=== PATIENT | male | born 1950 | race Caucasian/White ===

== ENCOUNTER 2017-05-27 21:33 | Emergency (ER) | payer MEDICAID ==
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
[2017-05-28] MEDS ORDERED: NORCO 5/325 PO ONE (02:27)
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
[2017-05-28] MEDS ORDERED: TETRACAINE 0.5% ONE (03:03)
[2017-05-28] MEDS ORDERED: FUL-GLO OP ONE ×2 (03:03→06:22)
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
[2017-05-28 03:30] VITALS: BP 105/64
[2017-05-28] MEDS ORDERED: BOOSTRIX IM ONE (03:31)
[2017-05-28] MEDS ORDERED: TETRACAINE 0.5% OS ONE (05:12)
== END 2017-05-28 03:55 | disposition home or self-care (01) ==
LOC: ED 21:33
DX: S06.0X1A Concussion with loss of consciousness of 30 minutes or less, initial encounter (principal); S02.32XA Fracture of orbital floor, left side, initial encounter for closed fracture; S20.221A Contusion of right back wall of thorax, initial encounter; R03.0 Elevated blood-pressure reading, without diagnosis of hypertension; Y04.2XXA Assault by strike against or bumped into by another person, initial encounter; Y93.89 Activity, other specified; Y99.8 Other external cause status; Y92.89 Other specified places as the place of occurrence of the external cause
CPT/HCPCS: 70450; 70486; 72125; 90471; 90715

== ENCOUNTER 2018-10-06 03:46 | Emergency (ER) | payer MEDICAID ==
[2018-10-06 05:06] LABS: Basophils % (Auto) 0.2 % (0.0-1.8); Eosinophils # (Auto) 0.1 K/mm3 (0.0-0.4); Eosinophils % (Auto) 0.7 % (0.0-4.3); Hematocrit 37.5 % (35.5-45.6); Hemoglobin 12.4 gm/dl (11.8-15.2); Lymphocytes # (Auto) 0.4 K/mm3 (1.2-5.4); Lymphocytes % (Auto) 3.9 % (13.4-35.0); Mean Corpuscular HGB Conc 33 % (32-34); Mean Corpuscular Volume 82 fl (84-94); Monocytes # (Auto) 0.9 K/mm3 (0.0-0.8); Monocytes % (Auto) 9.8 % (0.0-7.3); Platelet Count 345 K/mm3 (140-440); Red Blood Count 4.57 M/mm3 (3.65-5.03); Red Cell Distribution Width 15.5 % (13.2-15.2)
[2018-10-06 05:27] LABS: Alanine Aminotransferase 31 units/L (7-56); Albumin 4.1 g/dL (3.9-5); BUN/Creatinine Ratio 33; Blood Urea Nitrogen 23 mg/dL (9-20); Calcium 9.5 mg/dL (8.4-10.2); Hemolysis Index 12
[2018-10-06] MEDS ORDERED: THORAZINE 25 MG in NACL 0.9% 50 ML IV ONE (06:23)
[2018-10-06] MEDS ORDERED: FLEET PR ONE (06:24)
[2018-10-06] MEDS ORDERED: NACL 0.9% 1000 ML 1,000 ML IV ONE (06:25)
--- NOTE | 2018-10-06 08:32 | Cat Scan Report ---
CT ABDOMEN PELVIS WITH CONTRAST: HISTORY: Constipation, abdominal pain. COMPARISON: 05/30/18. TECHNIQUE: Helical CT in 1.25mm intervals following IV contrast. Sagittal and coronal reconstructions. FINDINGS: Lung bases: Normal. Liver: Within normal limits. Calcified granuloma in the right hepatic lobe is noted. Biliary system: Normal. Pancreas: Normal. Spleen: Normal. Kidneys/ureters/bladder: Normal. Adrenal glands: Normal. Aorta: Normal. Intestines: Marked irregular thickening of the gastric wall is again noted and highly suspicious for gastric cancer. Gastric jejunal anastomosis is suspected since the previous exam, correlate with history. A jejunal tube is in position. There is no evidence for bowel obstruction. There is moderate stool in the colon. Appendix: Not identified. Ascites: Trace perihepatic and perisplenic ascites has developed. Adenopathy: A few borderline in retroperitoneal lymph nodes in the left periaortic chain and aortocaval chain have developed which are suspicious for metastasis. Musculoskeletal: Bony structures are demineralized with degenerative change. Neural stimulator device and lumbar fusion changes are noted. No suspicious bony lesion is identified. IMPRESSION: No acute inflammatory process is identified. Mild constipation. Findings consistent with gastric cancer as outlined above. Minimal progression of disease is suspected since the previous exam. Trace ascites.
--- NOTE | 2018-10-06 08:53 | Emergency Department Report ---
ED General Adult HPI - General Chief complaint: Rectal Pain Stated complaint: ABD PAIN Time Seen by Provider: 10/06/18 06:09 Source: EMS, old records reviewed Mode of arrival: Stretcher Limitations: No Limitations - History of Present Illness Initial comments: Patient is a 68-year-old male past medical history of gastric cancer who presents with constipation and abdominal pain has been going on for the last couple days. Patient's phone pain is now 10 he states he hasn't had a bowel movement last 4 days. He's also been having hiccups. History is obtained by piston maker. Severity scale (0 -10): 10 - Related Data Previous Rx's Medication Instructions Recorded Last Taken Type Ondansetron [Zofran Oral Liq] 4 mg PO Q6H #120 ml 06/03/18 Unknown Rx Pantoprazole [Protonix TAB] 40 mg PO QDAY #30 tablet 06/03/18 Unknown Rx Polyethylene Glycol 3350 [Miralax 17 gm PO BID #1 box 10/06/18 Unknown Rx 3350] Allergies Allergy/AdvReac Type Severity Reaction Status Date / Time No Known Allergies Allergy Verified 05/28/17 03:02 ED Review of Systems ROS: Stated complaint: ABD PAIN Other details as noted in HPI Constitutional: denies: chills, fever Eyes: denies: eye pain, eye discharge, vision change ENT: denies: ear pain, throat pain Respiratory: denies: cough, shortness of breath, wheezing Cardiovascular: denies: chest pain, palpitations Endocrine: no symptoms reported Gastrointestinal: abdominal pain, constipation. denies: nausea, diarrhea Genitourinary: denies: urgency, dysuria Musculoskeletal: denies: back pain, joint swelling, arthralgia Skin: denies: rash, lesions Neurological: denies: headache, weakness, paresthesias Psychiatric: denies: anxiety, depression Hematological/Lymphatic: denies: easy bleeding, easy bruising ED Past Medical Hx - Past Medical History Previous Medical History?: Yes Hx Hypertension: No Hx Heart Attack/AMI: No Hx Congestive Heart Failure: No Hx Diabetes: No Hx Deep Vein Thrombosis: No Hx Pulmonary Embolism: No Hx Liver Disease: No Hx Arthritis: No Hx Seizures: No Hx Kidney Stones: No Hx Asthma: No Hx COPD: No Hx HIV: No Additional medical history: stomach cancer, gastruc adenocarcinoma, 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 - Surgical History Past Surgical History?: Yes Hx Coronary Stent: No Hx Open Heart Surgery: No Hx Pacemaker: No Hx Internal Defibrillator: No Hx Appendectomy: No Additional Surgical History: abdominal surgery, port cath left chest - Social History Smoking Status: Former Smoker Substance Use Type: None - Medications Home Medications: Home Medications Medication Instructions Recorded Confirmed Last Taken Type Ondansetron [Zofran Oral Liq] 4 mg PO Q6H #120 ml 06/03/18 Unknown Rx Pantoprazole [Protonix TAB] 40 mg PO QDAY #30 tablet 06/03/18 Unknown Rx Polyethylene Glycol 3350 [Miralax 17 gm PO BID #1 box 10/06/18 Unknown Rx 3350] ED Physical Exam - General Limitations: No Limitations General appearance: alert, in no apparent distress - Head Head exam: Present: atraumatic, normocephalic - Eye Eye exam: Present: normal appearance - ENT ENT exam: Present: mucous membranes moist - Neck Neck exam: Present: normal inspection - Respiratory Respiratory exam: Present: normal lung sounds bilaterally. Absent: respiratory distress - Cardiovascular Cardiovascular Exam: Present: regular rate, normal rhythm. Absent: systolic murmur, diastolic murmur, rubs, gallop - GI/Abdominal GI/Abdominal exam: Present: soft, normal bowel sounds - Rectal Rectal exam: Present: deferred - Extremities Exam Extremities exam: Present: normal inspection - Back Exam Back exam: Present: normal inspection - Neurological Exam Neurological exam: Present: alert, oriented X3 - Psychiatric Psychiatric exam: Present: normal affect, normal mood - Skin Skin exam: Present: warm, dry, intact, normal color. Absent: rash ED Course Vital Signs 10/06/18 10/06/18 04:15 04:21 Temperature 98 F Pulse Rate 79 Respiratory 16 16 Rate Blood Pressure 120/60 Blood Pressure 120/60 [Left] O2 Sat by Pulse 99 99 Oximetry ED Medical Decision Making - Lab Data Result diagrams: 10/06/18 04:36 10/06/18 04:36 Lab Results 10/06/18 10/06/18 Range/Units 04:36 04:36 WBC 9.2 (4.5-11.0) K/mm3 RBC 4.57 (3.65-5.03) M/mm3 Hgb 12.4 (11.8-15.2) gm/dl Hct 37.5 (35.5-45.6) % MCV 82 L (84-94) fl MCH 27 L (28-32) pg MCHC 33 (32-34) % RDW 15.5 H (13.2-15.2) % Plt Count 345 (140-440) K/mm3 Lymph % (Auto) 3.9 L (13.4-35.0) % [place] % (Auto) 9.8 H (0.0-7.3) % Eos % (Auto) 0.7 (0.0-4.3) % Baso % (Auto) 0.2 (0.0-1.8) % Lymph # 0.4 L (1.2-5.4) K/mm3 [place] # 0.9 H (0.0-0.8) K/mm3 Eos # 0.1 (0.0-0.4) K/mm3 Baso # 0.0 (0.0-0.1) K/mm3 Seg Neutrophils % 85.4 H (40.0-70.0) % Seg Neutrophils # 7.8 H (1.8-7.7) K/mm3 Sodium 134 L (137-145) mmol/L Potassium 3.7 (3.6-5.0) mmol/L Chloride 94.4 L (98-107) mmol/L Carbon Dioxide 24 (22-30) mmol/L Anion Gap 19 mmol/L BUN 23 H (9-20) mg/dL Creatinine 0.7 L (0.8-1.5) mg/dL Estimated GFR > 60 ml/min BUN/Creatinine Ratio 33 % Glucose 90 (75-100) mg/dL Calcium 9.5 (8.4-10.2) mg/dL Total Bilirubin 0.90 (0.1-1.2) mg/dL AST 33 (5-40) units/L ALT 31 (7-56) units/L Alkaline Phosphatase 173 H (35-129) units/L Total Protein 7.3 (6.3-8.2) g/dL Albumin 4.1 (3.9-5) g/dL Albumin/Globulin Ratio 1.3 % - Radiology Data Radiology results: report reviewed, image reviewed CT scan abdomen: Shows gastric cancer no extension of the disease mild constipation no bowel obstruction - Medical Decision Making Cdx: Constipation ddx: SBO, electrolyte abnormality I will CT scan I'll get blood work IV Thorazine and IV fluids. CT scan shows mild constipation. Critical care attestation.: If time is entered above; I have spent that time in minutes in the direct care of this critically ill patient, excluding procedure time. ED Disposition Clinical Impression: Hiccups Constipation Qualifiers: Constipation type: unspecified constipation type Qualified Code(s): K59.00 - Constipation, unspecified Abdominal pain Qualifiers: Abdominal location: generalized Qualified Code(s): R10.84 - Generalized abdominal pain Gastric malignant neoplasm Qualifiers: Malignant neoplasm of stomach location: unspecified location Qualified Code(s): C16.9 - Malignant neoplasm of stomach, unspecified Disposition: - TO HOME OR SELFCARE Is pt being admited?: No Does the pt Need Aspirin: No Condition: Stable Instructions: Constipation (ED), High Fiber Diet (ED) Prescriptions: Polyethylene Glycol 3350 [Miralax 3350] 17 gm PO BID #1 box Referrals: [facility]SONSANGER MD LAANNAH [Primary Care Provider] - 3-5 Days Print Language: UKRAINIAN
[2018-10-06 09:38] VITALS: BP 134/78
== END 2018-10-06 09:38 | disposition home or self-care (01) ==
LOC: ED 03:46
DX: K59.00 Constipation, unspecified (principal); C16.9 Malignant neoplasm of stomach, unspecified; Z87.891 Personal history of nicotine dependence
CPT/HCPCS: 36415; 74177; 80053; 85025; 96365; 99284; J3230; J7030; Q9967